=== PATIENT | male | born 1975 | race Caucasian/White ===

== ENCOUNTER 2022-08-15 13:36 | Emergency (ER) | payer OTHER ==
[~2022-08-15] VITALS: Ht 180.3 cm; Wt 75.0 kg
[2022-08-15 14:07] VITALS: BP 132/80
[2022-08-15] MEDS ORDERED: HYDR-4808 PO (15:38)
== END 2022-08-15 15:51 | disposition home or self-care (01) ==
LOC: EMS 13:40
DX: G47.00 Insomnia, unspecified (principal); F41.9 Anxiety disorder, unspecified; F17.210 Nicotine dependence, cigarettes, uncomplicated; F12.90 Cannabis use, unspecified, uncomplicated
CPT/HCPCS: 99285; Z7502